=== PATIENT | female | born 1990 | race Caucasian/White ===

== ENCOUNTER 2017-10-16 12:01 | Emergency (ER) | payer BC ==
[2017-10-16] MEDS ORDERED: Sodium Chloride 0.9% 2.5 ML Syringe FLUSH PRN (12:42)
[2017-10-16] MEDS ORDERED: Sodium Chloride 0.9% 10 ML Syringe FLUSH PRN (12:42)
[2017-10-16] MEDS ORDERED: Ketorolac 30 MG/ML SDV IVPUSH ONE (12:42)
--- NOTE | 2017-10-16 12:42 | EDM.PDOC ---
ED HPI GENERAL MEDICAL PROBLEM - General Chief Complaint: Abdominal Pain Stated Complaint: LEFT SIDE LOWER ABDOMINAL PAIN Time Seen by Provider: 10/16/17 12:34 Source of Information: Reports: Patient History Limitations: Reports: No Limitations - History of Present Illness INITIAL COMMENTS - FREE TEXT/NARRATIVE: HISTORY AND PHYSICAL: []27-year-old female presenting with left lower quadrant pain History of Present Illness: []Last night was reaching for an object out of her pantry and when she twisted turning felt a "pop" in the left lower abdomen. Patient has history of tubal ligation Has not had a menstrual cycle since last summer Review of Systems: As per history of present illness and below otherwise all systems reviewed and negative. Past medical history: As per history of present illness and as reviewed below otherwise noncontributory. Surgical history: As per history of present illness and as reviewed below otherwise noncontributory. Social history: No reported history of drug or alcohol abuse. Family history: As per history of present illness and as reviewed below otherwise noncontributory. Physical exam: Pleasant young woman who looks to be in somewhat distressed. She is answering questions appropriately Ricky when abdomen is touched. Skin is cool and dry. Abdomen soft no rebound. HEENT: Atraumatic, normocehpalic, pupils reactive, negative for conjunctival pallor or scleral icterus, mucous membranes moist, throat clear, neck supple, nontender, trachea midline. Lungs: Clear to auscultation, breath sounds equal bilaterally, chest non tender. Heart: S1S2, regular, negative for clicks, rubs, or JVD. Abdomen: Soft, nondistended, tender. Negative for masses or hepatossplenmegaly. Negative for costovertebral tenderness. Pelvis: Stable nontender. Genitourinary: Deferred. Rectal: Deferred Extremities: Atraumatic, negative for cords or calf pain. Neurovascular unremarkable. Neuro: Awake, alert, oriented. Cranial nerves II through XII unremarkable. Cerebellum unremarkable. Motor and sensory unremarkable throughout. Exam nonfocal. Discussed with the patient the negative CT scan and laboratory values . Patient verbalizes understanding Diagnostics: [CBC CMP UA urine culture urine drug screen hCG] Therapeutics: []Toradol IV Impression: [Abdominal pain] Plan: [Discharged to home] Follow-up with your primary care next week Definitive disposition and diagnosis as appropriate pending reevaluation and review of above. Onset: Sudden Duration: Hour(s): Location: Reports: Abdomen Quality: Reports: Sharp Severity: Moderate Improves with: Reports: None Left Lower Abdomen Pain Score (Numeric/FACES): 6 - Related Data Allergies Allergy/AdvReac Type Severity Reaction Status Date / Time aloe Allergy Rash Verified 10/16/17 12:30 diphenhydramine Allergy Anxiety Verified 10/16/17 12:30 [From Benadryl] Penicillins Allergy Hives Verified 10/16/17 12:30 Home Meds: Home Meds . [No Known Home Meds] 10/16/17 [History] ED ROS GENERAL - Review of Systems Review Of Systems: ROS reveals no pertinent complaints other than HPI. ED EXAM, GI/ABD - Physical Exam Exam: See Below (See dictation) Course - Vital Signs Last Recorded V/S: Last Vital Signs Temp 36.4 C 10/16/17 12:26 Pulse 97 10/16/17 12:26 Resp 18 10/16/17 12:26 BP 125/59 L 10/16/17 12:26 Pulse Ox 96 10/16/17 12:26 - Orders/Labs/Meds Orders: Active Orders 24 hr Category Date Time Status CULTURE URINE [RM] Stat Lab 10/16/17 13:03 Received Sodium Chloride 0.9% [Saline Flush] Med 10/16/17 12:42 Active 10 ml FLUSH ASDIRECTED PRN Sodium Chloride 0.9% [Saline Flush] Med 10/16/17 12:42 Active 2.5 ml FLUSH ASDIRECTED PRN Saline Lock Insert [OM.PC] Stat Oth 10/16/17 12:42 Ordered Medication Orders Sodium Chloride (Saline Flush) 10 ml FLUSH ASDIRECTED PRN PRN Reason: Keep Vein Open Last Admin: 10/16/17 13:34 Dose: 10 ml Sodium Chloride (Saline Flush) 2.5 ml FLUSH ASDIRECTED PRN PRN Reason: Keep Vein Open Last Admin: 10/16/17 13:34 Dose: 2.5 ml Labs: Laboratory Tests 10/16/17 10/16/17 10/16/17 Range/Units 12:42 12:42 13:03 WBC 9.01 (4.0-11.0) K/uL RBC 5.12 (4.30-5.90) M/uL Hgb 15.3 (12.0-16.0) g/dL Hct 44.4 (36.0-46.0) % MCV 86.7 (80.0-98.0) fL MCH 29.9 (27.0-32.0) pg MCHC 34.5 (31.0-37.0) g/dL RDW Std Deviation 43.4 (28.0-62.0) fl RDW Coeff of Jamila 14 (11.0-15.0) % Plt Count 248 (150-400) K/uL MPV 11.50 (7.40-12.00) fL Neut % (Auto) 75.0 (48.0-80.0) % Lymph % (Auto) 15.9 L (16.0-40.0) % Bullitt % (Auto) 6.7 (0.0-15.0) % Eos % (Auto) 2.1 (0.0-7.0) % Baso % (Auto) 0.3 (0.0-1.5) % Neut # (Auto) 6.8 H (1.4-5.7) K/uL Lymph # (Auto) 1.4 (0.6-2.4) K/uL Bullitt # (Auto) 0.6 (0.0-0.8) K/uL Eos # (Auto) 0.2 (0.0-0.7) K/uL Baso # (Auto) 0.0 (0.0-0.1) K/uL Nucleated RBC % 0.0 /100WBC Nucleated RBCs # 0 K/uL Sodium 142 (136-145) mmol/L Potassium 3.7 (3.5-5.1) mmol/L Chloride 106 (98-107) mmol/L Carbon Dioxide 23.1 (21.0-32.0) mmol/L BUN 7 (7.0-18.0) mg/dL Creatinine 0.8 (0.6-1.0) mg/dL Est Cr Clr Drug Dosing 79.28 mL/min Estimated GFR (MDRD) > 60.0 ml/min Glucose 92 (74-106) mg/dL Calcium 9.1 (8.5-10.1) mg/dL Total Bilirubin <0.1 L (0.2-1.0) mg/dL AST 22 (15-37) IU/L ALT 37 (14-63) IU/L Alkaline Phosphatase 87 (46-116) U/L Total Protein 7.2 (6.4-8.2) g/dL Albumin 3.9 (3.4-5.0) g/dL Globulin 3.3 (2.0-3.5) g/dL Albumin/Globulin Ratio 1.2 L (1.3-2.8) HCG, Quant 1.0 mIU/mL Urine Color YELLOW Urine Appearance CLEAR Urine pH 5.5 (5.0-8.0) Ur Specific Mcallen 1.025 (1.001-1.035) Urine Protein NEGATIVE (NEGATIVE) mg/dL Urine Glucose (UA) NEGATIVE (NEGATIVE) mg/dL Urine Ketones NEGATIVE (NEGATIVE) mg/dL Urine Occult Blood NEGATIVE (NEGATIVE) Urine Nitrite NEGATIVE (NEGATIVE) Urine Bilirubin NEGATIVE (NEGATIVE) Urine Urobilinogen 0.2 (<2.0) EU/dL Ur Leukocyte Esterase NEGATIVE (NEGATIVE) Urine RBC NONE SEEN (0-2/HPF) Urine WBC 0-2 (0-5/HPF) Ur Epithelial Cells OCCASIONAL (NONE-FEW) Urine Bacteria FEW (NEGATIVE) Urine Mucus LIGHT (NONE-MOD) Urine Opiates Screen (NEGATIVE) Ur Oxycodone Screen (NEGATIVE) Urine Methadone Screen (NEGATIVE) Ur Barbiturates Screen (NEGATIVE) Ur Phencyclidine Scrn (NEGATIVE) Ur Amphetamine Screen (NEGATIVE) U Methamphetamines Scrn (NEGATIVE) U Benzodiazepines Scrn (NEGATIVE) U Cocaine Metab Screen (NEGATIVE) U Marijuana (THC) Screen (NEGATIVE) 10/16/17 Range/Units 13:03 WBC (4.0-11.0) K/uL RBC (4.30-5.90) M/uL Hgb (12.0-16.0) g/dL Hct (36.0-46.0) % MCV (80.0-98.0) fL MCH (27.0-32.0) pg MCHC (31.0-37.0) g/dL RDW Std Deviation (28.0-62.0) fl RDW Coeff of Jamila (11.0-15.0) % Plt Count (150-400) K/uL MPV (7.40-12.00) fL Neut % (Auto) (48.0-80.0) % Lymph % (Auto) (16.0-40.0) % Bullitt % (Auto) (0.0-15.0) % Eos % (Auto) (0.0-7.0) % Baso % (Auto) (0.0-1.5) % Neut # (Auto) (1.4-5.7) K/uL Lymph # (Auto) (0.6-2.4) K/uL Bullitt # (Auto) (0.0-0.8) K/uL Eos # (Auto) (0.0-0.7) K/uL Baso # (Auto) (0.0-0.1) K/uL Nucleated RBC % /100WBC Nucleated RBCs # K/uL Sodium (136-145) mmol/L Potassium (3.5-5.1) mmol/L Chloride (98-107) mmol/L Carbon Dioxide (21.0-32.0) mmol/L BUN (7.0-18.0) mg/dL Creatinine (0.6-1.0) mg/dL Est Cr Clr Drug Dosing mL/min Estimated GFR (MDRD) ml/min Glucose (74-106) mg/dL Calcium (8.5-10.1) mg/dL Total Bilirubin (0.2-1.0) mg/dL AST (15-37) IU/L ALT (14-63) IU/L Alkaline Phosphatase (46-116) U/L Total Protein (6.4-8.2) g/dL Albumin (3.4-5.0) g/dL Globulin (2.0-3.5) g/dL Albumin/Globulin Ratio (1.3-2.8) HCG, Quant mIU/mL Urine Color Urine Appearance Urine pH (5.0-8.0) Ur Specific Mcallen (1.001-1.035) Urine Protein (NEGATIVE) mg/dL Urine Glucose (UA) (NEGATIVE) mg/dL Urine Ketones (NEGATIVE) mg/dL Urine Occult Blood (NEGATIVE) Urine Nitrite (NEGATIVE) Urine Bilirubin (NEGATIVE) Urine Urobilinogen (<2.0) EU/dL Ur Leukocyte Esterase (NEGATIVE) Urine RBC (0-2/HPF) Urine WBC (0-5/HPF) Ur Epithelial Cells (NONE-FEW) Urine Bacteria (NEGATIVE) Urine Mucus (NONE-MOD) Urine Opiates Screen NEGATIVE (NEGATIVE) Ur Oxycodone Screen NEGATIVE (NEGATIVE) Urine Methadone Screen NEGATIVE (NEGATIVE) Ur Barbiturates Screen NEGATIVE (NEGATIVE) Ur Phencyclidine Scrn NEGATIVE (NEGATIVE) Ur Amphetamine Screen NEGATIVE (NEGATIVE) U Methamphetamines Scrn NEGATIVE (NEGATIVE) U Benzodiazepines Scrn NEGATIVE (NEGATIVE) U Cocaine Metab Screen NEGATIVE (NEGATIVE) U Marijuana (THC) Screen POSITIVE (NEGATIVE) Meds: Medications Generic Name Dose Route Start Last Admin Trade Name Freq PRN Reason Stop Dose Admin Sodium Chloride 10 ml 10/16/17 12:42 10/16/17 13:34 Saline Flush FLUSH 10 ml ASDIRECTED PRN Administration Keep Vein Open Sodium Chloride 2.5 ml 10/16/17 12:42 10/16/17 13:34 Saline Flush FLUSH 2.5 ml ASDIRECTED PRN Administration Keep Vein Open Discontinued Medications Generic Name Dose Route Start Last Admin Trade Name Freq PRN Reason Stop Dose Admin Iopamidol 100 ml 10/16/17 14:02 10/16/17 14:04 Isovue Multipack-370 (76%) IVPUSH 10/16/17 14:03 100 ml ONETIME STA Administration Ketorolac Tromethamine 30 mg 10/16/17 12:42 10/16/17 13:33 Toradol IVPUSH 10/16/17 12:43 30 mg ONETIME ONE Administration Departure - Departure Time of Disposition: 14:28 Disposition: Home, Self-Care 01 Condition: Good Clinical Impression: Abdominal pain - Discharge Information Instructions: Abdominal Pain, Adult Referrals: Valeria Montes DO [Primary Care Provider] - Forms: ED Department Discharge Additional Instructions: The following information is given to patients seen in the emergency department who are being discharged to home. This information is to outline your options for follow-up care. We provide all patients seen in our emergency department with a follow-up referral. The need for follow-up, as well as the timing and circumstances, are variable depending upon the specifics of your emergency department visit. If you don't have a primary care physician on staff, we will provide you with a referral. We always advise you to contact your personal physician following an emergency department visit to inform them of the circumstance of the visit and for follow-up with them and/or the need for any referrals to a consulting specialist. The emergency department will also refer you to a specialist when appropriate. This referral assures that you have the opportunity for followup care with a specialist. All of these measure are taken in an effort to provide you with optimal care, which includes your followup. Under all circumstances we always encourage you to contact your private physician who remains a resource for coordinating your care. When calling for followup care, please make the office aware that this follow-up is from your recent emergency room visit. If for any reason you are refused follow-up, please contact the [facility] emergency department at and asked to speak to the emergency department charge nurse. you have nonspecific abdominal pain Follow-up with your primary care provider - My Orders Last 24 Hours: My Active Orders 10/16/17 12:42 Sodium Chloride 0.9% [Saline Flush] 10 ml FLUSH ASDIRECTED PRN Sodium Chloride 0.9% [Saline Flush] 2.5 ml FLUSH ASDIRECTED PRN Saline Lock Insert [OM.PC] Stat 10/16/17 13:03 CULTURE URINE [RM] Stat - Assessment/Plan Last 24 Hours: My Active Orders 10/16/17 12:42 Sodium Chloride 0.9% [Saline Flush] 10 ml FLUSH ASDIRECTED PRN Sodium Chloride 0.9% [Saline Flush] 2.5 ml FLUSH ASDIRECTED PRN Saline Lock Insert [OM.PC] Stat 10/16/17 13:03 CULTURE URINE [RM] Stat
[2017-10-16 13:18] LABS: CHLORIDE,CL 106 mmol/L (98-107); SODIUM,NA 142 mmol/L (136-145)
[2017-10-16] MEDS ORDERED: Iopamidol 755 MG/ML 500 ML Multipack Bottle IVPUSH STA (14:02)
--- NOTE | 2017-10-16 14:24 | CT ---
CT of the abdomen and pelvis with contrast. HISTORY: Pain TECHNIQUE: Axial CT images were obtained of the abdomen and pelvis following administration of 100 mL of Isovue-370 in the left antecubital fossa without complication. Coronal and sagittal reconstructio ns obtained. FINDINGS: The lung bases are clear, no pleural effusion. Liver, spleen, adrenal glands, and pancreas appear normal. Cholecystectomy clips are noted. No bulky retroperitoneal lymphadenopathy or abdominal ascites. Minimal fat-containing umbilical hernia. The kidneys enhance and function symmetrically without evidence of obstructive uropathy. There is a s mall cyst within the midpole of the left kidney. The large and small bowel are normal in caliber without evidence of obstruction. No focal pericolonic inflammation or stranding. Appendectomy. Tiny involuting left ovarian cysts are noted. No significan t free pelvic fluid. The urinary bladder is decompressed. No suspicious osseous abnormalities identified. IMPRESSION: 1. Cholecystectomy and appendectomy. 2. Tiny involuting left ovarian cysts.
== END 2017-10-16 14:45 | disposition home or self-care (01) ==
LOC: MW.ED 12:01
DX: R10.32 Left lower quadrant pain (principal); Z88.0 Allergy status to penicillin; Z88.8 Allergy status to other drugs, medicaments and biological substances; Z91.09 Other allergy status, other than to drugs and biological substances; X50.1XXA Overexertion from prolonged static or awkward postures, initial encounter
CPT/HCPCS: 36415; 74177; 80053; 80305; 81001; 84702; 85025; 87086; 96374; 99284; J1885; Q9967

== ENCOUNTER 2017-10-23 22:12 | Emergency (ER) | payer BC ==
--- NOTE | 2017-10-23 22:26 | EDM.PDOC ---
ED HPI GENERAL MEDICAL PROBLEM - General Chief Complaint: Chest Pain Stated Complaint: HAND NUMB, HEAVY CHEST Time Seen by Provider: 10/23/17 22:24 - History of Present Illness INITIAL COMMENTS - FREE TEXT/NARRATIVE: HISTORY AND PHYSICAL: History of present illness: Patient is 27-year-old female presents with chest pain is vaguely described without associated shortness breath palpitations nausea vomiting or diaphoresis she denies trauma denies fever denies chills denies other concern Review of systems: As per history of present illness and below otherwise all systems reviewed and negative. Past medical history: As per history of present illness and as reviewed below otherwise noncontributory. Surgical history: As per history of present illness and as reviewed below otherwise noncontributory. Social history: No reported history of drug or alcohol abuse. Family history: As per history of present illness and as reviewed below otherwise noncontributory. Physical exam: HEENT: Atraumatic, normocephalic, pupils reactive, negative for conjunctival pallor or scleral icterus, mucous membranes moist, throat clear, neck supple, nontender, trachea midline. Lungs: Clear to auscultation, breath sounds equal bilaterally, chest nontender. Heart: S1S2, regular, negative for clicks, rubs, or JVD. Abdomen: Soft, nondistended, nontender. Negative for masses or hepatosplenomegaly. Negative for costovertebral tenderness. Pelvis: Stable nontender. Genitourinary: Deferred. Rectal: Deferred. Extremities: Atraumatic, negative for cords or calf pain. Neurovascular unremarkable. Neuro: Awake, alert, oriented. Cranial nerves II through XII unremarkable. Cerebellum unremarkable. Motor and sensory unremarkable throughout. Exam nonfocal. Diagnostics: Chest x-ray EKG Therapeutics: None Impression: #1 atypical chest pain Definitive disposition and diagnosis as appropriate pending reevaluation and review of above. - Related Data Allergies Allergy/AdvReac Type Severity Reaction Status Date / Time aloe Allergy Rash Verified 10/16/17 12:30 diphenhydramine Allergy Anxiety Verified 10/16/17 12:30 [From Benadryl] Penicillins Allergy Hives Verified 10/16/17 12:30 Home Meds: Home Meds . 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: - Infectious Disease History Infectious Disease History: Reports: Chicken Pox - Past Surgical History HEENT Surgical History: Reports: Tonsillectomy GI Surgical History: Reports: Appendectomy, Cholecystectomy Female Surgical History: Reports: Tubal Ligation Social & Family History - Family History Family Medical History: Noncontributory - Tobacco Use Smoking Status *Q: Current Every Day Smoker Years of Tobacco use: 5 Packs/Tins Daily: 0.5 - Caffeine Use Caffeine Use: Reports: Soda - Recreational Drug Use Recreational Drug Use: No ED ROS GENERAL - Review of Systems Review Of Systems: ROS reveals no pertinent complaints other than HPI. ED EXAM, GENERAL - Physical Exam Exam: See Below (See dictation) Departure - Departure Time of Disposition: 22:26 Disposition: Home, Self-Care 01 Condition: Good Clinical Impression: Atypical chest pain - Discharge Information Referrals: PCP,None [Primary Care Provider] - Additional Instructions: The following information is given to patients seen in the emergency department who are being discharged to home. This information is to outline your options for follow-up care. We provide all patients seen in our emergency department with a follow-up referral. The need for follow-up, as well as the timing and circumstances, are variable depending upon the specifics of your emergency department visit. If you don't have a primary care physician on staff, we will provide you with a referral. We always advise you to contact your personal physician following an emergency department visit to inform them of the circumstance of the visit and for follow-up with them and/or the need for any referrals to a consulting specialist. The emergency department will also refer you to a specialist when appropriate. This referral assures that you have the opportunity for followup care with a specialist. All of these measure are taken in an effort to provide you with optimal care, which includes your followup. Under all circumstances we always encourage you to contact your private physician who remains a resource for coordinating your care. When calling for followup care, please make the office aware that this follow-up is from your recent emergency room visit. If for any reason you are refused follow-up, please contact the [facility] emergency department at and asked to speak to the emergency department charge nurse. Primary Care [address] [place] [id number] Motrin/Tylenol as directed follow-up primary medical doctor and/or clinic above call to schedule routine appointment return as needed as discussed
[2017-10-23] MEDS ORDERED: Sodium Chloride 0.9% 1,000 ML IV ONE (22:27)
[2017-10-23 23:05] LABS: CHLORIDE,CL 103 mmol/L (98-107); SODIUM,NA 139 mmol/L (136-145)
[2017-10-24] MEDS ORDERED: Potassium Chloride 20 MEQ Tab.ER PO ONE (00:26)
--- NOTE | 2017-10-26 15:15 | CR ---
EXAM DATE: 10/23/17 PATIENT'S AGE: 27 Patient: AMANDA MEJIA Facility: [place], [place] Site . Site : [id number] Study: XRay Chest [id number]/16/2018 10:55:45 PM Ordering Physician: Amairani Arzate Final Report: INDICATION: chest pain, shortness of breath, weakness, upper extremity numbness CHEST, ONE VIEW An AP radiograph of the chest was performed. Comparison: No previous studies are currently available for comparison. The lungs appear clear and no pleural effusions are identified. The cardiomediastinal silhouette and pulmonary vasculature appear normal, as do the visualized bones. IMPRESSION: No acute intrathoracic abnormality identified. ALYCIA EAGLE MD [employer] Dictated by: Aaron Eagle MD @ 10/23/2017 23:05:20 (Electronic Signature) Report Signed by Proxy. [facility]ERYanna
== END 2017-10-24 00:50 | disposition home or self-care (01) ==
LOC: MW.ED 22:12
DX: R07.89 Other chest pain (principal); F17.210 Nicotine dependence, cigarettes, uncomplicated; Z88.0 Allergy status to penicillin; Z88.8 Allergy status to other drugs, medicaments and biological substances; Z90.49 Acquired absence of other specified parts of digestive tract
CPT/HCPCS: 71045; 80053; 80305; 84484; 85025; 93005; 96360; 99285; A9270; J7040; 99284

== ENCOUNTER 2018-09-17 15:55 | Emergency (ER) | payer BC ==
--- NOTE | 2018-09-17 17:02 | EDM.PDOC ---
ED HPI GENERAL MEDICAL PROBLEM - General Chief Complaint: ENT Problem Stated Complaint: SINUS PRESSURE SORE THROAT Time Seen by Provider: 09/17/18 16:56 Source of Information: Reports: Patient History Limitations: Reports: No Limitations - History of Present Illness INITIAL COMMENTS - FREE TEXT/NARRATIVE: History of present illness: []Patient has a history of sinus pressure, sore throat, chest shunt, ear pain and body aches. Review of systems: As per history of present illness and below otherwise all systems reviewed and negative. Past medical history: As per history of present illness and as reviewed below otherwise noncontributory. Surgical history: As per history of present illness and as reviewed below otherwise noncontributory. Social history: No reported history of drug or alcohol abuse. Family history: As per history of present illness and as reviewed below otherwise noncontributory. Physical exam: General: Well developed, well nourished in NAD HEENT: Atraumatic, normocephalic, pupils reactive, negative for conjunctival pallor or scleral icterus, mucous membranes moist, throat clear, neck supple, nontender, trachea midline. No tenderness to palpation of maxillary or frontal sinuses TMs clear, no adenopathy Lungs: Clear to auscultation, breath sounds equal bilaterally, chest nontender. No wheezing or rhonchi Heart: S1S2, regular, negative for clicks, rubs, or JVD. Abdomen: NABS, Soft, nondistended, nontender. Negative for masses or hepatosplenomegaly. Negative for costovertebral tenderness. Pelvis: Stable nontender. Genitourinary: Deferred. Rectal: Deferred. Extremities: Atraumatic, negative for cords or calf pain. Neurovascular unremarkable. Neuro: Awake, alert, oriented. Cranial nerves II through XII unremarkable. Cerebellum unremarkable. Motor and sensory unremarkable throughout. Exam nonfocal. Skin:warm and dry Diagnostics: Influenza, strep negative Therapeutics: None ED Course: Unremarkable Impression: Viral URI Prescriptions: None Plan: Motrin, Tylenol, follow-up with primary care return if symptoms worsen or change. Definitive disposition and diagnosis as appropriate pending reevaluation and review of above. 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: Neurological History: Reports: Migraines - Infectious Disease History Infectious Disease History: Reports: Chicken Pox - Past Surgical History HEENT Surgical History: Reports: Tonsillectomy GI Surgical History: Reports: Appendectomy, Cholecystectomy Female Surgical History: Reports: Tubal Ligation Social & Family History - Family History Family Medical History: Noncontributory - Tobacco Use Smoking Status *Q: Current Every Day Smoker Years of Tobacco use: 7 Packs/Tins Daily: 0.5 - Caffeine Use Caffeine Use: Reports: Soda - Recreational Drug Use Recreational Drug Use: No ED ROS GENERAL - Review of Systems Review Of Systems: ROS reveals no pertinent complaints other than HPI. ED EXAM, GENERAL - Physical Exam Exam: See Below (See history of present illness) Course - Vital Signs Last Recorded V/S: Last Vital Signs Temp Pulse 74 09/17/18 16:20 Resp 18 09/17/18 16:20 BP 87/57 L 09/17/18 16:20 Pulse Ox 96 09/17/18 16:20 - Orders/Labs/Meds Orders: Active Orders 24 hr Category Date Time Status CULTURE STREP A CONFIRMATION [] Stat Lab 09/17/18 17:05 Results STREP SCRN A RAPID W CULT CONF [RM] Stat Lab 09/17/18 17:05 Results Departure - Departure Time of Disposition: 17:38 Disposition: Home, Self-Care 01 Condition: Good Clinical Impression: Viral URI - Discharge Information *PRESCRIPTION DRUG MONITORING PROGRAM REVIEWED*: No *COPY OF PRESCRIPTION DRUG MONITORING REPORT IN PATIENT [place]: No Referrals: Gia Mcdonald NP [Primary Care Provider] - Forms: ED Department Discharge Additional Instructions: The following information is given to patients seen in the emergency department who are being discharged to home. This information is to outline your options for follow-up care. We provide all patients seen in our emergency department with a follow-up referral. The need for follow-up, as well as the timing and circumstances, are variable depending upon the specifics of your emergency department visit. If you don't have a primary care physician on staff, we will provide you with a referral. We always advise you to contact your personal physician following an emergency department visit to inform them of the circumstance of the visit and for follow-up with them and/or the need for any referrals to a consulting specialist. The emergency department will also refer you to a specialist when appropriate. This referral assures that you have the opportunity for follow-up care with a specialist. All of these measure are taken in an effort to provide you with optimal care, which includes your follow-up. Under all circumstances we always encourage you to contact your private physician who remains a resource for coordinating your care. When calling for follow-up care, please make the office aware that this follow-up is from your recent emergency room visit. If for any reason you are refused follow-up, please contact the [facility] at and asked to speak to the emergency department charge nurse. [facility] [address] [place] [id number] - My Orders Last 24 Hours: My Active Orders 09/17/18 17:05 CULTURE STREP A CONFIRMATION [RM] Stat STREP SCRN A RAPID W CULT CONF [RM] Stat - Assessment/Plan Last 24 Hours: My Active Orders 09/17/18 17:05 CULTURE STREP A CONFIRMATION [RM] Stat STREP SCRN A RAPID W CULT CONF [RM] Stat
== END 2018-09-17 17:50 | disposition home or self-care (01) ==
LOC: MW.ED 15:55
DX: J06.9 Acute upper respiratory infection, unspecified (principal); F17.210 Nicotine dependence, cigarettes, uncomplicated; Z91.048 Other nonmedicinal substance allergy status; Z88.0 Allergy status to penicillin; Z88.8 Allergy status to other drugs, medicaments and biological substances
CPT/HCPCS: 87081; 87804; 87880-QW; 99283

== ENCOUNTER 2021-05-15 16:43 | Observation (INO) | payer BC ==
[2021-05-15] MEDS ORDERED: ceFAZolin 1 GM in Premix Bag 1 BAG IV ONE (17:05)
[2021-05-15] MEDS ORDERED: ceFAZolin 2 GM in Premix Bag 1 BAG IV ONE (17:05)
[2021-05-15] MEDS: Lactated Ringers 1,000 ML IV SCH ×2 (17:46→21:12)
[2021-05-15 17:56] LABS: BLOOD UREA NITROGEN,BUN 8 mg/dL (7.0-18.0); CARBON DIOXIDE,CO2 29.7 mmol/L (21.0-32.0); CHLORIDE,CL 103 mmol/L (98-107); GLUCOSE RANDOM 96 mg/dL (74-106); POTASSIUM,K 3.8 mmol/L (3.5-5.1); SODIUM,NA 143 mmol/L (136-145)
[2021-05-15] MEDS ORDERED: Midazolam 1 MG/ML 2 ML SDV ONE (18:55)
[2021-05-15] MEDS ORDERED: Ondansetron 4 MG/2 ML SDV ONE (18:55)
[2021-05-15] MEDS ORDERED: Lidocaine 2% 5 ML SDV ONE (18:55)
[2021-05-15] MEDS ORDERED: Dexamethasone 4 MG/ML 5 ML MDV ONE (18:55)
[2021-05-15] MEDS ORDERED: fentaNYL 100 MCG/2 ML SDV ONE ×2 (18:55→20:10)
[2021-05-15] MEDS ORDERED: Sugammadex Sodium 200 MG/2 ML VIAL ONE (18:55)
[2021-05-15] MEDS ORDERED: Rocuronium Bromide 50 MG/5 ML Syringe ONE (18:55)
[2021-05-15] MEDS ORDERED: Propofol 200 MG/20 ML SDV ONE (18:55)
[2021-05-15] MEDS ORDERED: Bupivacaine 0.25% 10 ML SDV ONE (19:11)
[2021-05-15] MEDS ORDERED: Octyl 2-Cyanoacrylate 1 Tube ONE (19:11)
--- NOTE | 2021-05-15 20:18 | PCM.PREANE ---
Preanesthetic Assessment - Procedure Proposed Procedure: Diagnostic Laparoscopy - Anesthesia/Transfusion/Family Hx Anesthesia History: Prior Anesthesia Without Reaction Transfusion History: No Prior Transfusion(s) - Review of Systems General: No Symptoms Pulmonary: No Symptoms Cardiovascular: No Symptoms Gastrointestinal: Abdominal Pain (pelvic pain) Neurological: No Symptoms Other: Reports: None - Physical Assessment NPO Status Date: 05/14/21 NPO Status Time: 21:00 (cl liq at 1700 10/6 (H2O)) Vital Signs: Last Vital Signs Temp 98 F 05/15/21 19:22 Pulse 65 05/15/21 19:22 Resp 18 05/15/21 19:22 BP 99/70 05/15/21 19:22 Pulse Ox 95 05/15/21 19:22 Height: 5 ft 1 in Weight: 49.2 kg ASA Class: 1E Mental Status: Alert & Oriented x3 Airway Class: Mallampati = 2 Dentition: Reports: Missing Tooth/Teeth (top front 2 teeth missing) Thyro-Mental Finger Breadths: 3 Mouth Opening Finger Breadths: 3 ROM/Head Extension: Full Lungs: Clear to Auscultation, Normal Respiratory Effort Cardiovascular: Regular Rate, Regular Rhythm - Lab Values: Laboratory Last Values WBC 10.70 K/uL (4.0-11.0) 05/15/21 17: RBC 4.80 M/uL (4.30-5.90) 05/15/21 17: Hgb 14.5 g/dL (12.0-16.0) 05/15/21 17: Hct 42.2 % (36.0-46.0) 05/15/21 17: MCV 87.9 fL (80.0-98.0) 05/15/21 17: MCH 30.2 pg (27.0-32.0) 05/15/21 17: MCHC 34.4 g/dL (31.0-37.0) 05/15/21 17: RDW Std Deviation 42.0 fl (28.0-62.0) 05/15/21 17: RDW Coeff of Jamila 13 % (11.0-15.0) 05/15/21 17: Plt Count 292 K/uL (150-400) 05/15/21 17: MPV 10.90 fL (7.40-12.00) 05/15/21 17:21 Nucleated RBC % 0.0 /100WBC 05/15/21 17:21 Nucleated RBCs # 0 K/uL 05/15/21 17:21 Sodium 143 mmol/L (136-145) 05/15/21 17:21 Potassium 3.8 mmol/L (3.5-5.1) 05/15/21 17:21 Chloride 103 mmol/L (98-107) 05/15/21 17:21 Carbon Dioxide 29.7 mmol/L (21.0-32.0) 05/15/21 17:21 BUN 8 mg/dL (7.0-18.0) 05/15/21 17:21 Creatinine 0.7 mg/dL (0.6-1.0) 05/15/21 17:21 Est Cr Clr Drug Dosing 86.26 mL/min 05/15/21 17:21 Estimated GFR (MDRD) > 60.0 ml/min 05/15/21 17:21 Glucose 96 mg/dL (74-106) 05/15/21 17:21 Calcium 8.7 mg/dL (8.5-10.1) 05/15/21 17:21 HCG, Quant < 1.0 mIU/mL 05/15/21 17:21 SARS-CoV-2 RNA (FORREST) NEGATIVE (NEGATIVE) 05/15/21 17:10 Blood Type O NEGATIVE 05/15/21 17:25 Antibody Screen NEGATIVE 05/15/21 17:25 - Allergies Allergies/Adverse Reactions: Allergies Allergy/AdvReac Type Severity Reaction Status Date / Time aloe Allergy Rash Verified 05/15/21 17:06 diphenhydramine Allergy Anxiety Verified 05/15/21 17:06 [From Benadryl] Penicillins Allergy Hives Verified 05/15/21 17:06 - Acknowledgements Anesthesia Type Planned: General Anesthesia Pt an Appropriate Candidate for the Planned Anesthesia: Yes Alternatives and Risks of Anesthesia Discussed w Pt/Guardian: Yes Pt/Guardian Understands and Agrees with Anesthesia Plan: Yes PreAnesthesia Questionnaire Respiratory History: Reports: Other (See Below) 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: Neurological History: Reports: Migraines Psychiatric History: Reports: Depression - Infectious Disease History Infectious Disease History: Reports: Chicken Pox - Past Surgical History HEENT Surgical History: Reports: Tonsillectomy GI Surgical History: Reports: Appendectomy, Cholecystectomy Female Surgical History: Reports: Tubal Ligation - SUBSTANCE USE Tobacco Use Within Last Twelve Months: Vaping Recreational Drug Use History: Yes Recreational Drug Type: Reports: Marijuana/Hashish - CURRENT (IN HOUSE) MEDS Current Meds: Current Medications Lactated Ringer's (Ringers, Lactated) 1,000 mls @ 125 mls/hr IV [facility] Last Admin: 05/15/21 17:46 Dose: 125 mls/hr Documented by: Discontinued Medications Bupivacaine HCl (Bupivacaine 0.25% 10 Ml Sdv) Confirm Administered Dose 30 ml .ROUTE .STK-MED ONE Stop: 05/15/21 19:12 Dexamethasone (Dexamethasone 4 Mg/Ml 5 Ml Mdv) Confirm Administered Dose 20 mg .ROUTE .STK-MED ONE Stop: 05/15/21 18:56 Fentanyl (Fentanyl 100 Mcg/2 Ml Sdv) Confirm Administered Dose 100 mcg .ROUTE .STK-MED ONE Stop: 05/15/21 18:56 Fentanyl (Fentanyl 100 Mcg/2 Ml Sdv) Confirm Administered Dose 100 mcg .ROUTE .STK-MED ONE Stop: 05/15/21 20:11 Cefazolin Sodium/Dextrose 2 gm (/ Premix) 50 mls @ 100 mls/hr IV ONETIME ONE Stop: 05/15/21 17:34 Last Admin: 05/15/21 17:45 Dose: 100 mls/hr Documented by: Lidocaine (Lidocaine 2% 5 Ml Sdv) Confirm Administered Dose 5 ml .ROUTE .STK-MED ONE Stop: 05/15/21 18:56 Midazolam HCl (Midazolam 1 Mg/Ml 2 Ml Sdv) Confirm Administered Dose 2 mg .ROUTE .STK-MED ONE Stop: 05/15/21 18:56 Octyl Cyanoacrylate (Octyl 2-Cyanoacrylate 1 Tube) Confirm Administered Dose 1 applic .ROUTE .STK-MED ONE Stop: 05/15/21 19:12 Ondansetron HCl (Ondansetron 4 Mg/2 Ml Sdv) Confirm Administered Dose 4 mg .ROUTE .STK-MED ONE Stop: 05/15/21 18:56 Propofol (Propofol 200 Mg/20 Ml Sdv) Confirm Administered Dose 200 mg .ROUTE .STK-MED ONE Stop: 05/15/21 18:56 Rocuronium Otto (Rocuronium Otto 50 Mg/5 Ml Syringe) Confirm Administered Dose 50 mg .ROUTE .STK-MED ONE Stop: 05/15/21 18:56 Sugammadex Sodium (Sugammadex Sodium 200 Mg/2 Ml Vial) Confirm Administered Dose 200 mg .ROUTE .STK-MED ONE Stop: 05/15/21 18:56
[2021-05-15] MEDS ORDERED: Acetaminophen/oxyCODONE 325-5 MG Tab PO PRN ×2 (20:36)
[2021-05-15] MEDS ORDERED: Ketorolac 30 MG/ML SDV IVPUSH ONE (20:36)
[2021-05-15] MEDS ORDERED: Ondansetron 4 MG/2 ML SDV IVPUSH PRN ×2 (20:36→20:49)
[2021-05-15] MEDS ORDERED: Promethazine 25 MG/ML SDV IM PRN (20:36)
[2021-05-15] MEDS ORDERED: Ketorolac 30 MG/ML SDV IVPUSH PRN (20:36)
--- NOTE | 2021-05-15 20:44 | PCM.OPNOTE ---
- General Post-Op/Procedure Note Date of Surgery/Procedure: 05/15/21 Operative Procedure(s): Operative laparoscopy with right salpingo-oophorectomy Findings: Normal appearing uterus and left ovary. Left fallopian tube consistent with status post tubal ligation. 5cm cyst with right ovary. Right fallopian tube adhered to right ovary. Peritoneal window located within the right posterior cul-de-sac, consistent with endometriosis. Pre Op Diagnosis: 1. Pelvic pain. 2. Right adnexal mass Post-Op Diagnosis: 1. Pelvic pain. 2. Right adnexal mass Anesthesia Technique: General LMA Primary Surgeon: Crystal Huang Anesthesia Provider: Maite Dwyer Surgeon Partner: Kateryna Avila Pathology: Right ovary and fallopian tube Fluid Replacement, Intraop: 800 Output, Urine Amount: 100 EBL in mLs: 10 Complications: None known Condition: Good Free Text/Narrative:: Dictation #[id number]
--- NOTE | 2021-05-15 20:48 | PCM.POSTAN ---
POST ANESTHESIA ASSESSMENT - MENTAL STATUS Mental Status: Somnolent - VITAL SIGNS Vital Signs: Last Vital Signs Temp 98 F 05/15/21 19:22 Pulse 65 05/15/21 19:22 Resp 18 05/15/21 19:22 BP 99/70 05/15/21 19:22 Pulse Ox 95 05/15/21 19:22 - RESPIRATORY Respiratory Status: Respiratory Rate WNL, Airway Patent, O2 Saturation Stable, Supplemental Oxygen - CARDIOVASCULAR CV Status: Pulse Rate WNL, Blood Pressure Stable - GASTROINTESTINAL GI Status: No Symptoms - POST OP HYDRATION Hydration Status: Adequate & Stable
[2021-05-15] MEDS ORDERED: Metoclopramide 10 MG/2 ML SDV IVPUSH PRN (20:49)
[2021-05-15] MEDS ORDERED: Morphine 2 MG/ML SYRINGE IVPUSH PRN (20:49)
[2021-05-15] MEDS ORDERED: HYDROmorphone 1 MG/ML Syringe IVPUSH PRN (20:49)
[2021-05-15] MEDS ORDERED: fentaNYL 100 MCG/2 ML SDV IVPUSH PRN (20:49)
[2021-05-15] MEDS ORDERED: Naloxone 0.4 MG/ML SDV IVPUSH PRN (20:49)
[2021-05-15] MEDS ORDERED: Acetaminophen 1,000 MG in Premix Bag 1 BAG IV ONE (21:04)
--- NOTE | 2021-05-15 21:09 | PCM48HPAN ---
Post Anesthesia Note - EVALUATION WITHIN 48HRS OF ANESTHETIC Vital Signs in Normal Range: Yes Patient Participated in Evaluation: Yes Respiratory Function Stable: Yes Airway Patent: Yes Cardiovascular Function Stable: Yes Hydration Status Stable: Yes Pain Control Satisfactory: Yes Nausea and Vomiting Control Satisfactory: Yes Mental Status Recovered: Yes Vital Signs: Last Vital Signs Temp 98 F 05/15/21 19:22 Pulse 55 L 05/15/21 20:56 Resp 16 05/15/21 20:56 BP 112/70 05/15/21 20:56 Pulse Ox 98 05/15/21 20:56
--- NOTE | 2021-05-15 22:22 | OR ---
SURGEON: CRYSTAL BRITO MD DATE OF PROCEDURE: 05/15/2021 PREOPERATIVE DIAGNOSIS: 1. Pelvic pain. 2. Right adnexal mass. POSTOPERATIVE DIAGNOSIS: 1. Pelvic pain. 2. Right adnexal mass. PROCEDURE: Operative laparoscopy with right salpingo-oophorectomy. PRIMARY SURGEON: Crystal Brito MD. MARKET RISK MANAGER: Kateryna Avila MD. ANESTHESIOLOGISTS: Valencia Robles CRNA. ANESTHESIA: General endotracheal. COMPLICATIONS: None known. EBL: 10 mL. IV FLUID: 800 mL of crystalloid. URINE OUTPUT: 100 mL of clear urine, straight cathed prior to the procedure. INDICATIONS: The patient is a 31-year-old female who presented to the clinic with severe pelvic pain that started just after midnight on 05/15/2021, while the patient was having intercourse. The patient also noted vaginal bleeding following intercourse. Ultrasound was performed and a 5 cm adnexal mass was noted on ultrasound. However, no free fluid was noted. Adnexal mass consistent with probable hemorrhagic cyst. Due to the patient's severe pain, a decision was made to proceed with diagnostic laparoscopy with possible indicated procedures. FINDINGS: Normal-appearing uterus and left ovary. Left fallopian tube consistent with status post tubal ligation. A 5 cm cyst within the right ovary. Right fallopian tube adhered to right ovary. Peritoneal window located within the right posterior cul-de-sac consistent with endometriosis. PROCEDURE IN DETAIL: The patient was taken to the operating room, where general endotracheal anesthesia was obtained without difficulty. 2 g of Ancef was given prior to the procedure. Abdominal and vaginal prep were performed in the usual fashion. A Watts catheter was inserted and the bladder drained. The patient was draped in a sterile fashion and a time-out was held. A speculum was inserted into the vagina to visualize the cervix. Approximately 5 mL of dark red blood was noted. Allis clamp used to grasp the cervix at 12 o'clock. The uterus sounded to 7 cm. The cervix was serially dilated, and a ZUMI manipulator was placed into the uterus, and the speculum was then removed. Attention was then turned to the abdominal portion of the procedure. Due to the patient's extensive history of abdominal surgery, the peritoneal cavity was accessed via Griffin's point after an NG tube was placed and the stomach was desufflated. 2 mL of local anesthetic was injected 3 cm below the costal margin at the midclavicular line. A 5 mm incision was made, and Veress needle inserted into the abdominal cavity. After adequate insufflation of CO2, a trocar was inserted into the peritoneal cavity without difficulty. The laparoscopic camera was then inserted, and the patient placed into Trendelenburg position. The right and left lower quadrant ports were then placed. Findings noted as above. The right fallopian tube was grasped and elevated, and the LigaSure device was used to cauterize and cut the right IP ligament. The LigaSure device was then used to cauterize and cut along the mesosalpinx to the level of the right cornua, and the fallopian tube was then detached from the cornua. The right lower quadrant port site was then enlarged for a 12 mm port to be placed. A laparoscopic Endobag was then inserted into the right lower quadrant site, and the right ovarian and fallopian tube complex was inserted to the bag. This was removed without difficulty. Inspection of the pelvis was then again performed and hemostasis was noted. All ports were then removed. The right lower quadrant port site was closed first by reapproximating the fascia with 0 Vicryl. The skin incisions were then approximated with 4-0 Monocryl with subcutaneous suture. Hemostasis was then noted. Attention was then turned to the patient's vagina. The ZUMI manipulator was then removed without difficulty. A speculum was then inserted a final time to visualize the cervix, and hemostasis was noted. Telfa bandages were placed over the three the abdominal port sites. Sponge, lap, and needle count were correct x2. The patient tolerated the procedure well and sent to PACU in stable condition. THIEN ANG /[id number] LORENA
[2021-05-15] MEDS: Morphine 4 MG/ML Syringe IVPUSH PRN (23:33)
[2021-05-16] MEDS: Morphine 4 MG/ML Syringe IVPUSH PRN ×2 (04:45→11:29)
[2021-05-16 07:06] LABS: BLOOD UREA NITROGEN,BUN 8 mg/dL (7.0-18.0); CARBON DIOXIDE,CO2 25.6 mmol/L (21.0-32.0); CHLORIDE,CL 102 mmol/L (98-107); GLUCOSE RANDOM 136 mg/dL (74-106); POTASSIUM,K 4.3 mmol/L (3.5-5.1); SODIUM,NA 140 mmol/L (136-145)
--- NOTE | 2021-05-16 08:44 | PCM.SURGPN ---
- General Info Date of Service: 05/16/21 Date of Surgery/Procedure: 05/15/21 POD#: 1 Admission Diagnosis/Problem: Pelvic and perineal pain (Right adnexal mass) Functional Status: Reports: Ambulating, Urinating, Other (Patient ambulating slowly about room during rounds. Pain improved with PO medications. Voiding independently. Has not attempted to eat. Tolerating liquids. Vaginal bleeding has decreased) - Review of Systems General: Reports: Fatigue HEENT: Reports: No Symptoms Pulmonary: Reports: No Symptoms Cardiovascular: Reports: No Symptoms Gastrointestinal: Reports: Abdominal Pain Genitourinary: Reports: No Symptoms Musculoskeletal: Reports: No Symptoms Skin: Reports: No Symptoms Neurological: Reports: No Symptoms Psychiatric: Reports: No Symptoms - Patient Data Vitals - Most Recent: Last Vital Signs Temp 97.7 F 05/16/21 02:45 Pulse 55 L 05/16/21 02:45 Resp 14 05/16/21 02:45 BP 98/58 L 05/16/21 02:45 Pulse Ox 98 05/16/21 02:45 Weight - Most Recent: 108 lb 7.479 oz I&O - Last 24 Hours: Intake & Output 05/15/21 05/16/21 05/16/21 22:59 06:59 14:59 Intake Total 2100 400 Output Total 100 300 Balance 2000 100 Lab Results Last 24 Hrs: Laboratory Results - last 24 hr 05/15/21 05/15/21 05/15/21 Range/Units 17:10 17:21 17:21 WBC 10.70 (4.0-11.0) K/uL RBC 4.80 (4.30-5.90) M/uL Hgb 14.5 (12.0-16.0) g/dL Hct 42.2 (36.0-46.0) % MCV 87.9 (80.0-98.0) fL MCH 30.2 (27.0-32.0) pg MCHC 34.4 (31.0-37.0) g/dL RDW Std Deviation 42.0 (28.0-62.0) fl RDW Coeff of Jamila 13 (11.0-15.0) % Plt Count 292 (150-400) K/uL MPV 10.90 (7.40-12.00) fL Neut % (Auto) (48.0-80.0) % Lymph % (Auto) (16.0-40.0) % [place] % (Auto) (0.0-15.0) % Eos % (Auto) (0.0-7.0) % Baso % (Auto) (0.0-1.5) % Neut # (Auto) (1.4-5.7) K/uL Lymph # (Auto) (0.6-2.4) K/uL [place] # (Auto) (0.0-0.8) K/uL Eos # (Auto) (0.0-0.7) K/uL Baso # (Auto) (0.0-0.1) K/uL Nucleated RBC % 0.0 /100WBC Nucleated RBCs # 0 K/uL Sodium 143 (136-145) mmol/L Potassium 3.8 (3.5-5.1) mmol/L Chloride 103 (98-107) mmol/L Carbon Dioxide 29.7 (21.0-32.0) mmol/L BUN 8 (7.0-18.0) mg/dL Creatinine 0.7 (0.6-1.0) mg/dL Est Cr Clr Drug Dosing 86.26 mL/min Estimated GFR (MDRD) > 60.0 ml/min Glucose 96 (74-106) mg/dL Calcium 8.7 (8.5-10.1) mg/dL HCG, Quant mIU/mL SARS-CoV-2 RNA ([facility]) NEGATIVE (NEGATIVE) Blood Type Antibody Screen 05/15/21 05/15/21 05/16/21 Range/Units 17:21 17:25 05:12 WBC 11.31 H (4.0-11.0) K/uL RBC 4.17 L (4.30-5.90) M/uL Hgb 12.6 (12.0-16.0) g/dL Hct 36.8 (36.0-46.0) % MCV 88.2 (80.0-98.0) fL MCH 30.2 (27.0-32.0) pg MCHC 34.2 (31.0-37.0) g/dL RDW Std Deviation 41.9 (28.0-62.0) fl RDW Coeff of Jamila 13 (11.0-15.0) % Plt Count 261 (150-400) K/uL MPV 11.40 (7.40-12.00) fL Neut % (Auto) 92.2 H (48.0-80.0) % Lymph % (Auto) 5.8 L (16.0-40.0) % [place] % (Auto) 1.9 (0.0-15.0) % Eos % (Auto) 0.1 (0.0-7.0) % Baso % (Auto) 0.0 (0.0-1.5) % Neut # (Auto) 10.4 H (1.4-5.7) K/uL Lymph # (Auto) 0.7 (0.6-2.4) K/uL [place] # (Auto) 0.2 (0.0-0.8) K/uL Eos # (Auto) 0.0 (0.0-0.7) K/uL Baso # (Auto) 0.0 (0.0-0.1) K/uL Nucleated RBC % 0.0 /100WBC Nucleated RBCs # 0 K/uL Sodium (136-145) mmol/L Potassium (3.5-5.1) mmol/L Chloride (98-107) mmol/L Carbon Dioxide (21.0-32.0) mmol/L BUN (7.0-18.0) mg/dL Creatinine (0.6-1.0) mg/dL Est Cr Clr Drug Dosing mL/min Estimated GFR (MDRD) ml/min Glucose (74-106) mg/dL Calcium (8.5-10.1) mg/dL HCG, Quant < 1.0 mIU/mL SARS-CoV-2 RNA ([facility]) (NEGATIVE) Blood Type O NEGATIVE Antibody Screen NEGATIVE 05/16/21 Range/Units 05:12 WBC (4.0-11.0) K/uL RBC (4.30-5.90) M/uL Hgb (12.0-16.0) g/dL Hct (36.0-46.0) % MCV (80.0-98.0) fL MCH (27.0-32.0) pg MCHC (31.0-37.0) g/dL RDW Std Deviation (28.0-62.0) fl RDW Coeff of Jamila (11.0-15.0) % Plt Count (150-400) K/uL MPV (7.40-12.00) fL Neut % (Auto) (48.0-80.0) % Lymph % (Auto) (16.0-40.0) % [place] % (Auto) (0.0-15.0) % Eos % (Auto) (0.0-7.0) % Baso % (Auto) (0.0-1.5) % Neut # (Auto) (1.4-5.7) K/uL Lymph # (Auto) (0.6-2.4) K/uL [place] # (Auto) (0.0-0.8) K/uL Eos # (Auto) (0.0-0.7) K/uL Baso # (Auto) (0.0-0.1) K/uL Nucleated RBC % /100WBC Nucleated RBCs # K/uL Sodium 140 (136-145) mmol/L Potassium 4.3 (3.5-5.1) mmol/L Chloride 102 (98-107) mmol/L Carbon Dioxide 25.6 (21.0-32.0) mmol/L BUN 8 (7.0-18.0) mg/dL Creatinine 0.8 (0.6-1.0) mg/dL Est Cr Clr Drug Dosing 75.48 mL/min Estimated GFR (MDRD) > 60.0 ml/min Glucose 136 H (74-106) mg/dL Calcium 8.1 L (8.5-10.1) mg/dL HCG, Quant mIU/mL SARS-CoV-2 RNA ([facility]) (NEGATIVE) Blood Type Antibody Screen Med Orders - Current: Current Medications Lactated Ringer's (Ringers, Lactated) 1,000 mls @ 125 mls/hr IV ASDIRECTED [facility] Last Admin: 05/15/21 21:12 Dose: 125 mls/hr Documented by: Ketorolac Tromethamine (Ketorolac 30 Mg/Ml Sdv) 30 mg IVPUSH Q6H PRN PRN Reason: Pain (severe 7-10) Stop: 05/20/21 20:36 Last Admin: 05/15/21 23:34 Dose: 30 mg Documented by: Morphine Sulfate (Morphine 4 Mg/Ml Syringe) 4 mg IVPUSH Q2H PRN PRN Reason: Pain (severe 7-10) Last Admin: 05/16/21 04:45 Dose: 4 mg Documented by: Ondansetron HCl (Ondansetron 4 Mg/2 Ml Sdv) 4 mg IVPUSH Q6H PRN PRN Reason: Nausea/Vomiting Last Admin: 05/15/21 23:33 Dose: 4 mg Documented by: Oxycodone/Acetaminophen (Acetaminophen/Oxycodone 325-5 Mg Tab) 1 tab PO Q4H PRN PRN Reason: Pain (moderate 4-6) Oxycodone/Acetaminophen (Acetaminophen/Oxycodone 325-5 Mg Tab) 2 tab PO Q4H PRN PRN Reason: Pain (moderate 4-6) Last Admin: 05/16/21 08:07 Dose: 2 tab Documented by: Promethazine HCl (Promethazine 25 Mg/Ml Sdv) 25 mg IM Q6H PRN PRN Reason: Nausea/Vomiting Discontinued Medications Bupivacaine HCl (Bupivacaine 0.25% 10 Ml Sdv) Confirm Administered Dose 30 ml .ROUTE .STK-MED ONE Stop: 05/15/21 19:12 Dexamethasone (Dexamethasone 4 Mg/Ml 5 Ml Mdv) Confirm Administered Dose 20 mg .ROUTE .STK-MED ONE Stop: 05/15/21 18:56 Droperidol (Droperidol 5 Mg/2 Ml Sdv) 0.625 mg IVPUSH ONETIME PRN PRN Reason: Nausea/Vomiting Fentanyl (Fentanyl 100 Mcg/2 Ml Sdv) Confirm Administered Dose 100 mcg .ROUTE .STK-MED ONE Stop: 05/15/21 18:56 Fentanyl (Fentanyl 100 Mcg/2 Ml Sdv) Confirm Administered Dose 100 mcg .ROUTE .STK-MED ONE Stop: 05/15/21 20:11 Fentanyl (Fentanyl 100 Mcg/2 Ml Sdv) 50 mcg IVPUSH Q5M PRN PRN Reason: Pain (mild 1-3) Last Admin: 05/15/21 21:21 Dose: 50 mcg Documented by: Hydromorphone HCl (Hydromorphone 1 Mg/Ml Syringe) 1 mg IVPUSH Q10M PRN PRN Reason: Pain (moderate 4-6) Cefazolin Sodium/Dextrose 2 gm (/ Premix) 50 mls @ 100 mls/hr IV ONETIME ONE Stop: 05/15/21 17:34 Last Admin: 05/15/21 17:45 Dose: 100 mls/hr Documented by: Acetaminophen (Ofirmev 1000 Mg/100 Ml) Confirm Administered Dose 100 mls @ as directed .ROUTE .STK-MED ONE Stop: 05/15/21 21:00 Acetaminophen 1,000 mg/ Premix 100 mls @ 400 mls/hr IV NOW ONE Stop: 05/15/21 21:18 Last Admin: 05/15/21 21:10 Dose: 400 mls/hr Documented by: Ketorolac Tromethamine (Ketorolac 30 Mg/Ml Sdv) 30 mg IVPUSH ONETIME ONE Stop: 05/15/21 20:37 Last Admin: 05/15/21 22:51 Dose: Not Given Documented by: Lidocaine (Lidocaine 2% 5 Ml Sdv) Confirm Administered Dose 5 ml .ROUTE .STK-MED ONE Stop: 05/15/21 18:56 Metoclopramide HCl (Metoclopramide 10 Mg/2 Ml Sdv) 10 mg IVPUSH ONETIME PRN PRN Reason: Nausea/Vomiting Midazolam HCl (Midazolam 1 Mg/Ml 2 Ml Sdv) Confirm Administered Dose 2 mg .ROUTE .STK-MED ONE Stop: 05/15/21 18:56 Morphine Sulfate (Morphine 2 Mg/Ml Syringe) 2 mg IVPUSH Q10M PRN PRN Reason: Pain (severe 7-10) Naloxone HCl (Naloxone 0.4 Mg/Ml Sdv) 0.1 mg IVPUSH ASDIRECTED PRN PRN Reason: Respiratory Depression Octyl Cyanoacrylate (Octyl 2-Cyanoacrylate 1 Tube) Confirm Administered Dose 1 applic .ROUTE .STK-MED ONE Stop: 05/15/21 19:12 Ondansetron HCl (Ondansetron 4 Mg/2 Ml Sdv) Confirm Administered Dose 4 mg .ROUTE .STK-MED ONE Stop: 05/15/21 18:56 Ondansetron HCl (Ondansetron 4 Mg/2 Ml Sdv) 4 mg IVPUSH ONETIME PRN PRN Reason: Nausea/Vomiting Propofol (Propofol 200 Mg/20 Ml Sdv) Confirm Administered Dose 200 mg .ROUTE .STK-MED ONE Stop: 05/15/21 18:56 Rocuronium Kasson (Rocuronium [place] 50 Mg/5 Ml Syringe) Confirm Administered Dose 50 mg .ROUTE .STK-MED ONE Stop: 05/15/21 18:56 Sugammadex Sodium (Sugammadex Sodium 200 Mg/2 Ml Vial) Confirm Administered Dose 200 mg .ROUTE .STK-MED ONE Stop: 05/15/21 18:56 - Exam Wound/Incisions: Dressing Dry and Intact General: Alert Lungs: Normal Respiratory Effort Cardiovascular: Regular Rate GI/Abdominal Exam: Soft, No Distention, Tender (appropriate postoperatively) Extremities: Normal Inspection, Normal Range of Motion, Non-Tender, No Pedal Edema Skin: Warm, Dry, Intact Neurological: No New Focal Deficit Psy/Mental Status: Normal Mood Sepsis Event Note - Evaluation Sepsis Screening Result: No Definite Risk - Focused Exam Vital Signs: Vital Signs Temp Pulse Resp BP Pulse Ox 05/16/21 02:45 97.7 F 55 L 14 98/58 L 98 05/16/21 01:45 97.2 F 53 L 14 97/61 98 05/16/21 00:45 60 14 105/59 L 93 L 05/15/21 23:45 50 L 16 99/60 93 L 05/15/21 23:15 66 14 109/69 95 05/15/21 22:45 53 L 16 88/53 L 93 L 05/15/21 22:30 54 L 14 87/55 L 93 L 05/15/21 22:15 53 L 16 82/53 L 95 05/15/21 22:00 56 L 16 94/61 96 05/15/21 21:45 97.9 F 51 L 16 100/62 97 05/15/21 21:20 61 10 L 99/63 95 05/15/21 21:15 65 12 105/59 L 97 05/15/21 21:10 75 15 108/64 17 L 05/15/21 21:08 77 11 L 99/66 95 05/15/21 20:56 55 L 16 112/70 98 05/15/21 20:53 49 L 10 L 102/69 100 05/15/21 20:49 52 L 15 112/65 100 - Problem List Review Problem List Initiated/Reviewed/Updated: Yes - My Orders Last 24 Hours: Active Orders 24 hr Category Date Time Status Patient Status [ADT] Routine ADT 05/15/21 20:36 Active Antiembolic Devices [RC] PER UNIT ROUTINE Care 05/15/21 17:05 Active Antiembolic Devices [RC] PER UNIT ROUTINE Care 05/15/21 20:37 Active Notify Provider Intake and Out [RC] ASDIRECTED Care 05/15/21 20:36 Active Notify Provider Vital Signs [RC] ASDIRECTED Care 05/15/21 20:36 Active Notify Provider Vital Signs [RC] ASDIRECTED Care 05/15/21 20:49 Active Oxygen Therapy [RC] ASDIRECTED Care 05/15/21 20:36 Active Oxygen Therapy [RC] PRN Care 05/15/21 20:49 Active RT Incentive Spirometry [RC] Q2HWA Care 05/15/21 20:36 Active Up With Assistance [RC] PER UNIT ROUTINE Care 05/15/21 20:36 Active Up ad Magali [RC] PER UNIT ROUTINE Care 05/15/21 20:36 Active Urinary Catheter Removal [RC] Per Unit Routine Care 05/15/21 20:36 Active Vital Signs [RC] PER UNIT ROUTINE Care 05/15/21 20:36 Active Vital Signs [RC] Q4H Care 05/15/21 20:49 Active Regular Diet [DIET] Diet 05/16/21 Breakfast Active Acetaminophen/oxyCODONE [Percocet 325-5 MG] Med 05/15/21 20:36 Active 1 tab PO Q4H PRN Acetaminophen/oxyCODONE [Percocet 325-5 MG] Med 05/15/21 20:36 Active 2 tab PO Q4H PRN Ketorolac [Toradol] Med 05/15/21 20:36 Active 30 mg IVPUSH Q6H PRN Lactated Ringers [Ringers, Lactated] 1,000 ml Med 05/15/21 17:15 Active IV ASDIRECTED Morphine Med 05/15/21 20:36 Active 4 mg IVPUSH Q2H PRN Ondansetron [Zofran] Med 05/15/21 20:36 Active 4 mg IVPUSH Q6H PRN Promethazine [Phenergan] Med 05/15/21 20:36 Active 25 mg IM Q6H PRN Peripheral IV Discontinue [OM.PC] Routine Oth 05/15/21 20:36 Ordered Pulse Oximetry Continuous Monitoring [OM.PC] Routine Oth 05/15/21 20:49 Ordered SCD [Sequential Compression Device] [OM.PC] Routine Oth 05/15/21 17:05 Ordered Sequential Compression Device [OM.PC] Per Unit Routine Oth 05/15/21 20:36 Ordered Resuscitation Status Routine Resus Stat 05/15/21 20:36 Ordered Medication Orders Lactated Ringer's (Ringers, Lactated) 1,000 mls @ 125 mls/hr IV ASDIRECTED [facility] Last Admin: 05/15/21 21:12 Dose: 125 mls/hr Documented by: Infusion: 05/15/21 21:12 Dose: 125 mls/hr Documented by: Admin: 05/15/21 17:46 Dose: 125 mls/hr Documented by: JUNITO Ketorolac Tromethamine (Ketorolac 30 Mg/Ml Sdv) 30 mg IVPUSH Q6H PRN PRN Reason: Pain (severe 7-10) Stop: 05/20/21 20:36 Last Admin: 05/15/21 23:34 Dose: 30 mg Documented by: MARIANA Morphine Sulfate (Morphine 4 Mg/Ml Syringe) 4 mg IVPUSH Q2H PRN PRN Reason: Pain (severe 7-10) Last Admin: 05/16/21 04:45 Dose: 4 mg Documented by: Admin: 05/15/21 23:33 Dose: 4 mg Documented by: MARIANA Ondansetron HCl (Ondansetron 4 Mg/2 Ml Sdv) 4 mg IVPUSH Q6H PRN PRN Reason: Nausea/Vomiting Last Admin: 05/15/21 23:33 Dose: 4 mg Documented by: MARIANA Oxycodone/Acetaminophen (Acetaminophen/Oxycodone 325-5 Mg Tab) 1 tab PO Q4H PRN PRN Reason: Pain (moderate 4-6) Oxycodone/Acetaminophen (Acetaminophen/Oxycodone 325-5 Mg Tab) 2 tab PO Q4H PRN PRN Reason: Pain (moderate 4-6) Last Admin: 05/16/21 08:07 Dose: 2 tab Documented by: MARIE Promethazine HCl (Promethazine 25 Mg/Ml Sdv) 25 mg IM Q6H PRN PRN Reason: Nausea/Vomiting - Assessment Assessment (Free Text/Narrative):: 31 year old female POD 1 s/p operative laparoscopy with right salpino- oophorectomy - Plan Plan (Free Text/Narrative):: Routine postoperative cares * VSS, afebrile * Ambulating and voiding independently * Pain controlled with PO medication * Regular diet as tolerated * Reviewed surgical procedure and images from surgery Dispo: stable. Meeting postoperative milestones, anticipate discharge today. Reviewed discharge instructions. Patient to follow up at [facility] in 2 weeks.
== END 2021-05-16 12:46 | disposition home or self-care (01) ==
LOC: MW.SDS 16:43 → MW.MS 16:43 → MW.SDS 20:36
PROVIDERS: ADMIT Obstetrics & Gynecology; ATTEND Obstetrics & Gynecology
DX: D27.0 Benign neoplasm of right ovary (principal); K66.0 Peritoneal adhesions (postprocedural) (postinfection); G43.909 Migraine, unspecified, not intractable, without status migrainosus; Z98.890 Other specified postprocedural states; Z88.0 Allergy status to penicillin; Z01.812 Encounter for preprocedural laboratory examination; Z20.822 Contact with and (suspected) exposure to COVID-19; Z90.49 Acquired absence of other specified parts of digestive tract; Z87.891 Personal history of nicotine dependence; Z88.8 Allergy status to other drugs, medicaments and biological substances
CPT/HCPCS: 36415; 58661; 80048; 84702; 85025; 85027; 86850; 86900; 86901; 87635; 96365; A9270; G0378; J0131; J0690; J1100; J1885; J2250; J2270; J2405; J2704; J3010; J3490; J7030; J7120; 00840; 88307; U0002

== ENCOUNTER 2023-05-14 19:17 | Emergency (ER) | payer BC ==
[2023-05-14] MEDS ORDERED: Sodium Chloride 0.9% 10 ML Syringe FLUSH PRN (21:02)
[2023-05-14] MEDS ORDERED: Sodium Chloride 0.9% 2.5 ML Syringe FLUSH PRN (21:02)
[2023-05-14] MEDS ORDERED: Ondansetron 4 MG/2 ML SDV IVPUSH STA (21:02)
[2023-05-14] MEDS ORDERED: Sodium Chloride 0.9% 1,000 ML IV STA (21:02)
[2023-05-14] MEDS ORDERED: Ketorolac 30 MG/ML SDV IVPUSH STA (21:02)
[2023-05-14 21:23] LABS: BASOPHILS ABSOLUTE AUTO 0.06 K/uL (0.00-0.20); BASOPHILS PERCENT AUTO 0.5 % (0.0-1.0); EOSINOPHILS ABSOLUTE AUTO 0.12 K/uL (0.00-0.45); HEMATOCRIT 46.3 % (37.0-47.0); HEMOGLOBIN 16.1 g/dL (12.0-16.0); LYMPHOCYTES ABSOLUTE AUTO 2.38 K/uL (1.00-4.80); MEAN CORPUSCULAR HEMOGLOBIN 29.9 pg (28.0-32.0); MEAN CORPUSCULAR HGB CONC 34.8 g/dL (32.0-36.0); MEAN CORPUSCULAR VOLUME 86.1 fL (83.0-99.0); MEAN PLATELET VOLUME 10.4 fL (9.4-12.3); MONOCYTES ABSOLUTE AUTO 0.73 K/uL (0.00-0.80); MONOCYTES PERCENT AUTO 6.1 % (0.0-8.0); NEUTROPHILS ABSOLUTE AUTO 8.6 K/uL (1.8-7.7); NEUTROPHILS PERCENT AUTO 72.1 % (41.0-71.0); PLATELET COUNT,PLT 333 K/uL (150-400); RED BLOOD CELL COUNT 5.38 M/uL (4.10-5.30); WHITE BLOOD CELL COUNT,WBC 11.92 K/uL (3.9-11.3)
[2023-05-14 21:25] LABS: APPEARANCE,URINE CLEAR; BILIRUBIN,URINE NEGATIVE (NEGATIVE); COLOR,URINE YELLOW; GLUCOSE,URINE NEGATIVE (NEGATIVE); KETONES,URINE NEGATIVE (NEGATIVE); LEUKOCYTE ESTERASE,URINE SMALL (NEGATIVE); NITRITE,URINE NEGATIVE (NEGATIVE); OCCULT BLOOD,URINE NEGATIVE (NEGATIVE); PROTEIN,URINE NEGATIVE (NEGATIVE); UROBILINOGEN,URINE 0.2 EU/dL (<2.0)
[2023-05-14 21:34] LABS: RBC,URINE 0-1 (0-2/HPF)
[2023-05-14 21:35] LABS: BACTERIA,URINE FEW (NEGATIVE); EPITHELIAL CELLS,URINE RARE (NONE-FEW)
[2023-05-14] MEDS ORDERED: Iopamidol 755 MG/ML 500 ML Multipack Bottle IVPUSH ONE (21:35)
[2023-05-14 21:49] LABS: A/G RATIO 1.1 (0.9-1.6); ALBUMIN 4.1 g/dL (3.4-5.0); BILIRUBIN TOTAL 0.6 mg/dL (0.2-1.0); CALCIUM 9.3 mg/dL (8.5-10.1); CARBON DIOXIDE,CO2 25.3 mmol/L (21.0-32.0); CREATININE 0.8 mg/dL (0.6-1.0); EST CRCL DRUG DOSING (CG) 74.06 mL/min; POTASSIUM,K 3.1 mmol/L (3.5-5.1); PROTEIN TOTAL,TP 7.8 g/dL (6.4-8.2)
== END 2023-05-14 23:38 | disposition home or self-care (01) ==
LOC: MW.ED 19:17
DX: K76.0 Fatty (change of) liver, not elsewhere classified (principal); Z88.0 Allergy status to penicillin; Z88.6 Allergy status to analgesic agent; Z91.09 Other allergy status, other than to drugs and biological substances
CPT/HCPCS: 36415; 74177; 80053; 81001; 83690; 84703; 85025; 87086; 96361; 96374; 96375; 99284; J1885; J2405; J3490; J7030; Q9967